=== PATIENT | female | born 1990 | race African-American/Black ===

== ENCOUNTER 2016-12-27 13:26 | Emergency (ER) | payer BC ==
[~2016-12-27] VITALS: Ht 157.5 cm; Wt 77.1 kg
[~2016-12-27 13:26] MED LIST: AUGMENTIN 875875 M1 PO; LORTAB 5 MG/5001 TA1 PO; MUCINEX600 MG PO; NAPROSYN500 MG PO; ROBITUSSIN COU118 M1 PO; ROBITUSSIN COU118 ML; TOBRADEX ST EYE5 ML OP; ZPAK PO
[2016-12-27 13:27] VITALS: BP 122/73
[2016-12-27] MEDS ORDERED: AMOXICILLIN 50500 MG PO (13:50)
== END 2016-12-27 14:03 | disposition home or self-care (01) ==
LOC: ER 13:26
DX: J02.0 Streptococcal pharyngitis (principal); G43.909 Migraine, unspecified, not intractable, without status migrainosus

== ENCOUNTER 2017-07-31 21:01 | Emergency (ER) | payer BC ==
[~2017-07-31] VITALS: Ht 157.5 cm; Wt 72.6 kg
[~2017-07-31 21:01] MED LIST changes: +AMOXICILLIN 50500 MG PO
[2017-07-31] MEDS ORDERED: TYLENOL EXTRA500 MG PO (21:19)
[2017-07-31 21:22] LABS: URINE BILIRUBIN NEGATIVE (Negative); URINE BLOOD NEGATIVE (Negative); URINE COLOR YELLOW; URINE GLUCOSE-RANDOM* NEGATIVE (Negative); URINE KETONES NEGATIVE (Negative); URINE NITRITE NEGATIVE (Negative); URINE PROTEIN (DIPSTICK) NEGATIVE (Negative); URINE UROBILINOGEN 0.2 E.U./dl (0.2-1.0)
[2017-07-31 23:23] VITALS: BP 117/65
[2017-08-03 14:09] LABS: CHLAMYDIA TRACHOMATIS-PCR Negative (Negative); NEISSERIA GONORRHEA-PCR Negative (Negative)
== END 2017-07-31 23:25 | disposition home or self-care (01) ==
LOC: ER 21:01
PROVIDERS: Nurse Practitioner Family
DX: R30.0 Dysuria (principal); G43.909 Migraine, unspecified, not intractable, without status migrainosus; F17.210 Nicotine dependence, cigarettes, uncomplicated